=== PATIENT | female | born 1965 | race Caucasian/White ===

== ENCOUNTER 2019-01-11 08:40 | Outpatient (CLI) | payer OTHER ==
[2019-01-11 17:56] LABS: ALBUMIN 4.3 g/dL (3.2-5.5); ALBUMIN/GLOBULIN RATIO 1.7 (1.0-2.2); ALKALINE PHOSPHATASE 43 IU/L (42-121); ALT ALANINE AMINOTRANSFERASE 20 IU/L (10-60); AST ASPARTATE AMINOTRANSFERASE 30 IU/L (10-42); BILIRUBIN,TOTAL 1.1 mg/dL (0.2-1.0); BUN - BLOOD UREA NITROGEN 15 mg/dL (6-20); CALCIUM 9.5 mg/dL (8.5-10.3); CARBON DIOXIDE - CO2 30 mmol/L (21-32); CHLORIDE 105 mmol/L (101-111); CHOL/HDL RATIO 2.5 (<4.4); CHOLESTEROL 220 mg/dL; GFR - MDRD 58 (>89); GLUCOSE 88 mg/dL (70-100); HDL CHOLESTEROL 89 mg/dL; SODIUM 142 mmol/L (135-145); TOTAL PROTEIN 6.9 g/dL (6.7-8.2)
== END 2019-01-11 08:41 | disposition home or self-care (01) ==
LOC: LAB.S 08:40
PROVIDERS: ATTEND Nurse Practitioner Family
DX: Z00.00 Encounter for general adult medical examination without abnormal findings (principal); E55.9 Vitamin D deficiency, unspecified; E78.5 Hyperlipidemia, unspecified
CPT/HCPCS: 36415; 80053; 80061; 82306; 82728; 83721; 85025

== ENCOUNTER 2019-01-12 11:35 | Outpatient (CLI) | payer OTHER ==
[2019-01-12 17:57] LABS: BASOPHILS % (AUTO) 0.8 %; EOSINOPHILS # (AUTO) 0.2 10^3/uL (0.0-0.7); EOSINOPHILS % (AUTO) 3.1 %; LYMPHOCYTES # (AUTO) 1.9 10^3/uL (1.5-3.5); LYMPHOCYTES % (AUTO) 36.3 %; MEAN CORPUSCULAR HEMOGLOBIN 29.8 pg (27.0-31.0); MEAN CORPUSCULAR HGB CONC 31.7 g/dL (32.0-36.0); MEAN PLATELET VOLUME 9.3 fL (7.9-10.8); MONOCYTES # (AUTO) 0.5 10^3/uL (0.0-1.0); MONOCYTES % (AUTO) 10.2 %; NEUTROPHILS # (AUTO) 2.5 10^3/uL (1.5-6.6); NEUTROPHILS % (AUTO) 49.4 %; PLT - PLATELET COUNT 311 10^3/uL (130-450); RED BLOOD COUNT 4.36 10^6/uL (4.20-5.40); RED CELL DISTRIBUTION WIDTH 12.5 % (12.0-15.0); WHITE BLOOD COUNT 5.1 x10^3/uL (4.8-10.8)
== END 2019-01-12 11:36 | disposition home or self-care (01) ==
LOC: LAB.S 11:35
PROVIDERS: ATTEND Nurse Practitioner Family
DX: Z00.00 Encounter for general adult medical examination without abnormal findings (principal); E55.9 Vitamin D deficiency, unspecified; E78.5 Hyperlipidemia, unspecified
CPT/HCPCS: 36415; 85025

== ENCOUNTER 2019-01-21 07:42 | Outpatient (CLI) | payer OTHER ==
[2019-01-21 10:45] LABS: ALBUMIN 4.3 g/dL (3.2-5.5); ALBUMIN/GLOBULIN RATIO 1.7 (1.0-2.2); BILIRUBIN,TOTAL 0.8 mg/dL (0.2-1.0); CALCIUM 9.4 mg/dL (8.5-10.3); CREATININE 0.9 mg/dL (0.4-1.0); TOTAL PROTEIN 6.8 g/dL (6.7-8.2)
== END 2019-01-21 07:43 | disposition home or self-care (01) ==
LOC: LAB.S 07:42
PROVIDERS: ATTEND Nurse Practitioner Family
DX: E87.5 Hyperkalemia (principal)
CPT/HCPCS: 36415; 80053

== ENCOUNTER 2019-04-22 13:31 | Outpatient (CLI) | payer OTHER ==
--- NOTE | 2019-04-25 00:57 | Ultrasound Report ---
Reason: CKD STAGE II Procedure Date: 04/22/2019 Accession Number: [id number] / [id number] Procedure: US - Retroperitoneal CPT Code: Final Report FULL RESULT: EXAM: RENAL ULTRASOUND EXAM DATE: 04/22/2019 03:28 PM. CLINICAL HISTORY: CKD STAGE II. COMPARISON: None. TECHNIQUE: Real-time scanning was performed with static images obtained. FINDINGS: Right Kidney: 10 x 5 x 4.8 cm. Normal echotexture with no stones, contour-deforming masses, or hydronephrosis. Left Kidney: 10.4 x 6 x 5.2 cm. Normal echotexture with no stones, contour-deforming masses, or hydronephrosis. Bladder: Bilateral jets seen. The prevoid bladder volume was 468 cc. No significant postvoid volume identified. Other: None. IMPRESSION: Normal renal ultrasound. [facility]
== END 2019-04-22 13:32 | disposition home or self-care (01) ==
LOC: DI 13:31
PROVIDERS: ATTEND Internal Medicine Nephrology
DX: N18.2 Chronic kidney disease, stage 2 (mild) (principal)
CPT/HCPCS: 76770

== ENCOUNTER 2021-06-04 07:33 | Outpatient (CLI) | payer OTHER ==
[2021-06-04 15:26] LABS: HCT - HEMATOCRIT 39.6 % (37.0-47.0); MEAN CORPUSCULAR HEMOGLOBIN 30.7 pg (27.0-31.0); MEAN CORPUSCULAR HGB CONC 32.8 g/dL (32.0-36.0); MEAN CORPUSCULAR VOLUME 93.4 fL (81.0-99.0); RED BLOOD COUNT 4.24 10^6/uL (4.20-5.40); RED CELL DISTRIBUTION WIDTH 12.9 % (12.0-15.0); WHITE BLOOD COUNT 3.9 x10^3/uL (4.8-10.8)
[2021-06-04 15:39] LABS: BILIRUBIN,URINE NEGATIVE (NEGATIVE); GLUCOSE, URINE (UA) NEGATIVE (NEGATIVE); KETONES,URINE (UA) NEGATIVE (NEGATIVE); LEUKOCYTE ESTERASE, URINE TRACE (NEGATIVE); NITRITE,URINE NEGATIVE (NEGATIVE); OCCULT BLOOD,URINE NEGATIVE (NEGATIVE); PROTEIN,URINE NEGATIVE (NEGATIVE); UROBILINOGEN,URINE 0.2 (NORMAL) E.U./dL (NORMAL)
[2021-06-04 15:49] LABS: CLARITY,URINE CLEAR (CLEAR)
[2021-06-04 15:51] LABS: BACTERIA,URINE Few /HPF (None Seen); EPITHELIAL CELLS,UR FEW Transitional /HPF (<= Few); RBC,URINE 0-5 /HPF (0-5); SQUAMOUS EPITHELIAL CELL,UR MANY Squamous (<= Few)
[2021-06-04 15:59] LABS: CREATININE,URINE 142.2 mg/dL; PROTEIN/CREATININE RATIO,URINE 0.1 (<=0.2)
[2021-06-04 16:01] LABS: ALBUMIN 4.2 g/dL (3.2-5.5); BUN - BLOOD UREA NITROGEN 16 mg/dL (6-20); CALCIUM 9.2 mg/dL (8.5-10.3); CARBON DIOXIDE - CO2 27 mmol/L (21-32); CHLORIDE 104 mmol/L (101-111); CHOL/HDL RATIO 2.4 (<4.4); CHOLESTEROL 242 mg/dL; CREATININE 0.9 mg/dL (0.4-1.0); GFR - MDRD 65 (>89); GLUCOSE 93 mg/dL (70-100); HDL CHOLESTEROL 100 mg/dL; LDL CHOLESTEROL,CALCULATED 134 mg/dL; LDL/HDL RATIO 1.3 (<4.4); PHOSPHORUS 4.2 mg/dL (2.5-4.6); POTASSIUM 4.3 mmol/L (3.5-5.0); SODIUM 139 mmol/L (135-145); TRIGLYCERIDES 42 mg/dL; VLDL CHOLESTEROL 8 mg/dL
== END 2021-06-04 07:34 | disposition home or self-care (01) ==
LOC: LAB.S 07:33
PROVIDERS: ATTEND Internal Medicine Nephrology
DX: N18.2 Chronic kidney disease, stage 2 (mild) (principal)
CPT/HCPCS: 36415; 80061; 80069; 81001; 81003; 82570; 83721; 83970; 84156; 85027

== ENCOUNTER 2022-07-15 07:09 | Outpatient (CLI) | payer OTHER ==
[2022-07-15 15:04] LABS: HCT - HEMATOCRIT 42.9 % (37.0-47.0); HGB - HEMOGLOBIN 13.5 g/dL (12.0-16.0); MEAN CORPUSCULAR HEMOGLOBIN 29.7 pg (27.0-31.0); MEAN CORPUSCULAR HGB CONC 31.5 g/dL (32.0-36.0); MEAN CORPUSCULAR VOLUME 94.3 fL (81.0-99.0); MEAN PLATELET VOLUME 9.6 fL (7.9-10.8); RED BLOOD COUNT 4.55 10^6/uL (4.20-5.40); RED CELL DISTRIBUTION WIDTH 12.5 % (12.0-15.0); WHITE BLOOD COUNT 4.2 x10^3/uL (4.8-10.8)
[2022-07-15 15:37] LABS: ALBUMIN 4.3 g/dL (3.2-5.5); BUN - BLOOD UREA NITROGEN 10 mg/dL (6-20); CALCIUM 9.3 mg/dL (8.5-10.3); CARBON DIOXIDE - CO2 27 mmol/L (21-32); CHLORIDE 102 mmol/L (101-111); CHOL/HDL RATIO 2.3 (<4.4); CHOLESTEROL 202 mg/dL; CREATININE 0.9 mg/dL (0.4-1.0); GFR - MDRD 65 (>89); GLUCOSE 108 mg/dL (70-100); HDL CHOLESTEROL 86 mg/dL; PHOSPHORUS 4.2 mg/dL (2.5-4.6); POTASSIUM 4.2 mmol/L (3.5-5.0); SODIUM 140 mmol/L (135-145); TRIGLYCERIDES 27 mg/dL
[2022-07-15 15:50] LABS: BILIRUBIN,URINE NEGATIVE (NEGATIVE); GLUCOSE, URINE (UA) NEGATIVE (NEGATIVE); KETONES,URINE (UA) NEGATIVE (NEGATIVE); LEUKOCYTE ESTERASE, URINE TRACE (NEGATIVE); NITRITE,URINE NEGATIVE (NEGATIVE); OCCULT BLOOD,URINE NEGATIVE (NEGATIVE); PROTEIN,URINE NEGATIVE (NEGATIVE); UROBILINOGEN,URINE 0.2 (NORMAL) E.U./dL (NORMAL)
[2022-07-15 15:56] LABS: CLARITY,URINE HAZY (CLEAR)
[2022-07-15 16:14] LABS: BACTERIA,URINE Few /HPF (None Seen); RBC,URINE 0-5 /HPF (0-5); SQUAMOUS EPITHELIAL CELL,UR MOD Squamous (<= Few); WBC,URINE 0-3 /HPF (0-5)
[2022-07-15 16:17] LABS: CREATININE,URINE 53.1 mg/dL; TOTAL PROTEIN,URINE TIMED < 6 mg/dL
== END 2022-07-15 07:10 | disposition home or self-care (01) ==
LOC: LAB.S 07:09
PROVIDERS: ATTEND Internal Medicine Nephrology
DX: E78.5 Hyperlipidemia, unspecified (principal); N18.2 Chronic kidney disease, stage 2 (mild)
CPT/HCPCS: 36415; 80061; 80069; 81001; 81003; 82570; 83721; 83970; 84156; 85027

== ENCOUNTER 2022-10-21 07:00 | Outpatient (CLI) | payer OTHER ==
--- NOTE | 2022-10-22 16:35 | XRAY Report ---
PROCEDURE: Wrist 4 View RT INDICATIONS: SPRAIN OF RIGHT WRIST TECHNIQUE: 4 views of the wrist were acquired. COMPARISON: None. FINDINGS: Bones: Suspect nondisplaced distal radial metaphyseal fracture. No dislocations. No suspicious bony lesions. Scaphoid view: Scaphoid appears intact. Soft tissues: No suspicious soft tissue calcifications or masses. IMPRESSION: Question distal radial metaphyseal fracture. Recommend a short-term follow-up x-ray in 7-10 days. Reviewed by: Maegan Mansfield MD on 10/22/2022 4:34 PM PDT Approved by: Maegan Mansfield MD on 10/22/2022 4:34 PM PDT Station ID: [id number]
== END 2022-10-21 23:59 | disposition home or self-care (01) ==
LOC: DI.S 07:00
PROVIDERS: ATTEND Physician Assistant Medical
DX: S63.591A Other specified sprain of right wrist, initial encounter (principal)

== ENCOUNTER 2022-11-27 08:08 | Outpatient (CLI) | payer OTHER ==
--- NOTE | 2022-11-27 11:33 | DEXA Report ---
PROCEDURE: Dexa Spine and/or Hip INDICATIONS: WRIST FX TECHNIQUE: Dual energy x-ray absorptiometry (DXA) was performed on a [employer] System. Regions measur ed are the AP Spine, femoral neck, and if needed forearm. COMPARISON: None FINDINGS: Lumbar Spine: Bone Mineral Density 0.981 g/cm/cm,T score -1.7. Osteopenia Left Forearm (radius one third): Bone Mineral Density 0.763 g/cm/cm, T score -1.3. Osteopenia (T score greater or equal to -1.0: NORMAL) (T score from -1.1 to -2.4: OSTEOPENIA) (T score less than or equal to -2.5 to: OSTEOPOROSIS) Impression: By WHO criteria, this patient has low bone density (osteopenia). Patients with diagnosis of osteoporosis or osteopenia should have regular bone mineral density assess ment. For those eligible for Medicare, routine testing is allowed once every 2 years. Testing frequ ency can be increased for patients who have rapidly progressing disease or for those who are receivin g medical therapy to restore bone mass. Reviewed by: Jody Cerna MD on 11/27/2022 10:32 AM ANUPAM Approved by: Jody Cerna MD on 11/27/2022 10:32 AM ANUPAM Station ID: [id number]
== END 2022-11-27 08:09 | disposition home or self-care (01) ==
LOC: DI 08:08
PROVIDERS: ATTEND Nurse Practitioner Family
DX: S62.001A Unspecified fracture of navicular [scaphoid] bone of right wrist, initial encounter for closed fracture (principal); M85.89 Other specified disorders of bone density and structure, multiple sites